=== PATIENT | male | born 1940 | race Caucasian/White ===

== ENCOUNTER 2018-08-19 23:49 | Emergency (ER) | payer OTHER ==
[~2018-08-19] VITALS: Ht 177.8 cm; Wt 105.7 kg
[~2018-08-19 23:49] MED LIST: ALBUTEROL INH; CALCIUM OYSTER500 MG; CARDIOTEK TABL1 EACH; CENTRUM CHEWAB1 EACH; CHLORZOXAZONE500 MG PO; CIPRO500 MG PO; FLOMAX0.4 MG PO; GARLIC OIL1 EAC1; GLUCOPHAGE XR500 MG PO; LEVOTHYROXINE 0.1 MG PO; LISINOPRIL20 MG PO; METFORMIN HCL500 MG PO; MOBIC7.5 M1 PO; PHENERGAN 25 MG25 M1 PO; PREDNISONE 20 M20 MG PO; PROBIOTIC1 EAC1 PO; SAW PALMETTO500 MG; SINGULAIR 10 MG10 M1; VITAMIN B-12500 MCG PO; ZOVIRAX200 MG PO
[2018-08-20 00:11] LABS: BASOPHILS 0.3 % (0.0-2.0); EOSINOPHILS 2.8 % (0.0-3.0); HEMATOCRIT 44.6 % (42.0-52.0); HEMOGLOBIN 15.4 gm/dL (14.0-18.0); LYMPHOCYTES 27.9 % (24.0-44.0); MCHC 34.4 g/dL (28.0-37.0); MCV 84.1 fL (80.0-100.0); MONOCYTES 7.2 % (1.0-8.0); PLATELET COUNT 248 thou/uL (150-400); POLYS 61.8 % (36.0-66.0); RBC 5.31 mil/uL (4.50-6.00); RDW 16.5 % (10.5-14.5); WBC 9.8 thou/uL (4.0-11.0)
[2018-08-20 00:28] LABS: ANION GAP 11 mmol/L (7-16); BUN 21 mg/dL (7-18); CALCIUM 9.1 mg/dL (8.5-10.1); CHLORIDE 104 mmol/L (98-107); CO2 25 mmol/L (21-32); CREATININE 1.4 mg/dL (0.7-1.3); GLUCOSE 168 mg/dL (74-106); POTASSIUM 3.8 mmol/L (3.5-5.1); SODIUM 140 mmol/L (136-145); TROPONIN-I <0.06 ng/mL (<0.06)
[2018-08-20 02:30] VITALS: BP 155/78
--- NOTE | 2018-08-20 08:41 | EKG ---
[address] [address] [place] [address] ELECTROCARDIOGRAM REPORT Name: REGGIE BRICENO Room #: DEP CHATO Johnston#: [id number] ������������������ Admission: 08/19/18 ������������������ Attend Phys: Discharge: 08/20/18 ������������������ Date of : 44 Report #: [id number] ����������������������������������������������������������������� [id number] THIS REPORT FOR: //name// [facility] ED Test Date: 2018-08-19 Test Time: 23:52:01 Pat Name: REGGIE BRICENO Department: Room: Gender: Fur Grader: PATRICK : 1940 Requested By: Carlos Howard Order Number: [id number] MD: Amaury Connell Measurements Intervals [place] Rate: 61 P: 30 TX: 201 QRS: 109 QRSD: 91 T: 38 QT: 411 QTc: 414 Interpretive Statements Sinus rhythm Right axis deviation Compared to ECG 02/08/2016 04:36:53 Sinus tachycardia no longer present Electronically Signed On 08-20-2018 8:40:59 CDT by Amaury Connell [email or web address] ��������������������������������������������� <ELECTRONICALLY SIGNED> ���������������������������������������� By: Amaury Connell MD, [facility] ��������������������������������������������� 08/20/18 0840 2352 2352 Amaury Connell MD, FACC /EPI
== END 2018-08-20 02:31 | disposition home or self-care (01) ==
LOC: ER 23:49
PROVIDERS: Emergency Medicine
DX: M54.6 Pain in thoracic spine (principal); J45.909 Unspecified asthma, uncomplicated